=== PATIENT | male | born 1990 | race Caucasian/White ===

== ENCOUNTER 2020-01-11 19:13 | Emergency (ER) | payer OTHER ==
[~2020-01-11] VITALS: Ht 175.3 cm; Wt 83.9 kg
--- NOTE | 2020-01-11 19:20 | NUR ---
PT CAME TO THE ED C/O NON RADIATING MIDSTERNAL SHARP CHEST PAIN. -NAUSEA -VOMITING -DIAPHORESIS. PT ADMITS TO DRINKING ALCHOL AND METH USE LAST NIGHT AND TODAY. PT AAOX4, RESPIRATIONS EVEN AND UNLABORED ON RA W/ NAD NOTED. PT CONNECTED TO THE DOCUMENT CLERK AND POX. CALL LIGHT WITHIN REACH.
[2020-01-11] MEDS ORDERED: LORAZEPAM 1 MG TABLET PO ONE (19:30)
[2020-01-11] MEDS ORDERED: LORAZEPAM 1 MG TABLET ONE (19:32)
--- NOTE | 2020-01-11 19:41 | NUR ---
BLOOD COLLECTED AND SENT TO LAB
[2020-01-11 19:54] LABS: BASOPHILS # (AUTO) 0.1 /CMM (0.0-0.2); BASOPHILS % (AUTO) 0.4 % (0.0-2.0); EOSINOPHILS % (AUTO) 0.4 % (0.0-6.0); HEMATOCRIT 52 % (39-51); HEMOGLOBIN 17.7 g/dL (13.5-17.5); LYMPHOCYTES # (AUTO) 3.9 /CMM (0.8-4.8); LYMPHOCYTES % (AUTO) 25.1 % (20.0-44.0); MEAN CORPUSCULAR HGB CONC 34 g/dl (31.0-36.0); MEAN CORPUSCULAR VOLUME 90 fL (80-96); MONOCYTES # (AUTO) 1.3 /CMM (0.1-1.30); MONOCYTES % (AUTO) 8.3 % (2.0-12.0); NEUTROPHILS # (AUTO) 10.1 /CMM (1.8-8.9); NEUTROPHILS % (AUTO) 65.8 % (43.0-81.0); PLATELET COUNT (AUTO) 239 /CMM (150-450); WHITE BLOOD COUNT (AUTO) 15.4 K/uL (4.3-11.0)
[2020-01-11 20:04] LABS: CALCIUM, SERUM 9.4 mg/dL (8.5-10.1); CARBON DIOXIDE 25 mmol/L (21-32); CHLORIDE 101 mmol/L (98-107); GLUCOSE 113 mg/dL (74-106); POTASSIUM 3.7 mmol/L (3.5-5.1); SODIUM SERUM 139 mmol/L (136-145); UREA NITROGEN, BLOOD 8 mg/dL (7-18)
[2020-01-11] MEDS ORDERED: MAG HYDROX/AL HYDROX/SIMETH 30 ML UDC ONE (20:50)
[2020-01-11] MEDS ORDERED: LIDOCAINE VISCOUS 2% UD 15 ML UDC ONE (20:50)
[2020-01-11] MEDS ORDERED: FAMOTIDINE/PF INJ 20 MG/2 ML VIAL IV ONE ×2 (20:51→21:00)
[2020-01-11] MEDS ORDERED: LIDOCAINE VISCOUS 2% UD 15 ML UDC MM ONE (21:00)
[2020-01-11] MEDS ORDERED: MAG HYDROX/AL HYDROX/SIMETH 30 ML UDC PO ONE (21:00)
--- NOTE | 2020-01-11 22:44 | NUR ---
REPEAT EKG AT BEDSIDE
[2020-01-11 23:25] VITALS: BP 127/84
--- NOTE | 2020-01-11 23:25 | NUR ---
Patient discharged to home in stable condition. Written and verbal after care instructions given. Patient verbalizes understanding of instruction.IV removed. Catheter intact and site benign. Pressure and 4x4 applied to site. No bleeding noted.
== END 2020-01-11 23:26 | disposition home or self-care (01) ==
LOC: ER 19:14
DX: R07.89 Other chest pain (principal); F15.10 Other stimulant abuse, uncomplicated; K29.20 Alcoholic gastritis without bleeding; F10.10 Alcohol abuse, uncomplicated; F41.9 Anxiety disorder, unspecified; F32.9 Major depressive disorder, single episode, unspecified; K21.9 Gastro-esophageal reflux disease without esophagitis; F19.10 Other psychoactive substance abuse, uncomplicated; R00.0 Tachycardia, unspecified; Y90.9 Presence of alcohol in blood, level not specified; Z60.2 Problems related to living alone
CPT/HCPCS: 36415; 71045; 80048; 84484 ×2; 85025; 93005 ×3; 96374; 99285; J3490

== ENCOUNTER 2021-11-21 12:26 | Emergency (ER) | payer OTHER ==
[~2021-11-21] VITALS: Ht 175.3 cm; Wt 83.9 kg
--- NOTE | 2021-11-21 12:28 | NUR ---
CALLED TO TRIAGE NO ANSWER.
[2021-11-21 12:40] VITALS: BP 127/91
--- NOTE | 2021-11-21 12:45 | NUR ---
AT BEDSIDE FOR EVAL.
[2021-11-21] MEDS ORDERED: LORA-259 PO (12:49)
--- NOTE | 2021-11-21 13:05 | NUR ---
Patient discharged to home in stable condition. Written and verbal after care instructions given. Patient verbalizes understanding of instruction.
== END 2021-11-21 13:05 | disposition home or self-care (01) ==
LOC: ER 12:29
DX: F10.180 Alcohol abuse with alcohol-induced anxiety disorder (principal); F17.200 Nicotine dependence, unspecified, uncomplicated; Z60.2 Problems related to living alone; Z79.52 Long term (current) use of systemic steroids; Y90.9 Presence of alcohol in blood, level not specified